=== PATIENT | male | born 1970 | race Caucasian/White ===

== ENCOUNTER 2020-04-26 10:01 | Emergency (ER) | payer OTHER, SELFPAY ==
[2020-04-26 10:37] VITALS: BP 137/89; PULSE 77; RESP 14; TEMP 36.8; O2SAT 100; BMI 27.1
--- NOTE | 2020-04-26 11:02 | HMH.EDUTC ---
[facility] Disposition Clinical Impression: Viral syndrome Disposition: Home, Self-Care Condition on Discharge: Good Instructions: DI for Viral Syndrome Additional Instructions: Drink plenty of fluids. Take tylenol or ibuprofen for pain or fever. Take the medications as directed. Follow up with your regular doctor. GO TO THE ER FOR ANY WORSENING SYMPTOMS FOLLOW THE DIRECTIONS ON THE COVID-19 HAND OUT THAT WE GAVE YOU REGARDING SELF-ISOLATION UNTIL YOU KNOW YOUR COVID-19 RESULTS Prescriptions: Cetirizine HCl 10 mg PO DAILY 30 Days #30 tab Transmission Status: Received by [id number] Fluticasone Propionate [Flonase 50mcg nasal spray 16gm] 1 spr NS BID 30 Days #1 bottle Transmission Status: Received by [id number] Referrals: Hector Diaz [Primary Care Provider] - Time of Disposition: 11:08 Medical Decision Making - Medical Records Medical records reviewed: No: I reviewed the patient's medical records. - Rafael Inquiry Pt receiving controlled substance: No Vital Signs: 04/26/20 10:37 04/26/20 11:17 Temperature 98.2 F 98.2 F Temperature Source Oral Oral Pulse Rate 77 Pulse Rate [Radial] 77 Respiratory Rate 14 14 Blood Pressure 137/89 Blood Pressure [Right Arm] 137/89 Blood Pressure Mean [Right Arm] 105 Blood Pressure Source Automatic Cuff Blood Pressure Source [Right Arm] Automatic Cuff Blood Pressure Position Sitting Blood Pressure Position [Right Arm] Sitting 02 Sat by Pulse Oximetry 100 Oxygen Delivery Method Room Air Room Air [facility] HPI - General Stated complaint: runny nose, covid exposure Time Seen by Provider: 04/26/20 10:50 Mode of Arrival: Ambulatory Source of Information: Patient Limitations: No Limitations Description of Symptoms (Recalled from Triage Doc. by RN): exposed last week. cough and sore throat. HEENT Symptoms (Recalled from RN notes): Yes Resp Symptoms (Recalled from RN notes): No Skin Symptoms (Recalled from RN notes): No MS Symptoms (Recalled from RN notes): No Functional Status (Recalled from RN notes): wnl - History of Present Illness Provider Complaint: He c/o having runny nose and sinus drainage for the past 3 days. He doesn't know of any definite COVID-19 exposure, but he wants to be sure he doesn't have it. He thinks that he has allergies. - Related Data Home Medications Medication Instructions Recorded Confirmed allopurinol 100 mg tablet 100 mg PO ONCE 10/21/17 citalopram 20 mg tablet 20 mg PO ONCE 10/21/17 lisinopril 20 mg tablet 20 mg PO ONCE 10/21/17 ranitidine HCl 150 mg tablet 150 mg PO QHS 10/21/17 Previous Rx's Medication Instructions Recorded Cetirizine HCl 10 mg PO DAILY 30 Days #30 tab 04/26/20 Fluticasone Propionate [Flonase 1 spr NS BID 30 Days #1 bottle 04/26/20 50mcg nasal spray 16gm] Allergies Allergy/AdvReac Type Severity Reaction Status Date / Time No Known Allergies Allergy Unverified 10/21/17 10:35 - Worker's Comp Is this a Worker's Comp case?: No [facility] History - Hepatitis A Screen Drug use history?: No High risk sexual behaviors?: No History of sexually transmitted infection?: No Currently employed?: No Childcare worker?: No Do you have indoor plumbing?: Yes Do you have electricity?: Yes Attestation statement:: This patient has been screened for Hepatitis A risk factors. I have reviewed the patient's past medical history: Yes Medical History: Reports:: Gastroesophageal Reflux Disease(GERD), Hypertension Other Medical History: Reports: Other Comment: Gout Other Surgeries: Yes: Other Comment: oral - Social History Smoking Status: Never smoker Alcohol Intake: never Alcohol Intake Frequency:: a few times a month Substance Use Type: denies use Occupational Status: employed Housing: house Household Members: family Family Hx:: Diabetes, Hypertension ROS Obtained: Yes All systems reviewed & no additional complaints - Constitutional Constitutional: Reports
[2020-04-26 11:17] VITALS: BP 137/89; PULSE 77; RESP 14; TEMP 36.8; O2SAT 100
== END 2020-04-26 11:19 | disposition home or self-care (01) ==
PROVIDERS: Emergency Provider Nurse Practitioner Family; PCP Family Medicine
DX: B34.9 Viral infection, unspecified (principal); Z20.828 Contact with and (suspected) exposure to other viral communicable diseases; I10 Essential (primary) hypertension; K21.9 Gastro-esophageal reflux disease without esophagitis; Z79.899 Other long term (current) drug therapy
CPT/HCPCS: 99201; U0003

== ENCOUNTER → 2021-03-14 18:37 | Outpatient (CLI) | payer OTHER, SELFPAY | PROVIDERS: PCP Family Medicine; Visit Provider Family Medicine | DX: G47.33 Obstructive sleep apnea (adult) (pediatric) (principal); R06.83 Snoring | CPT/HCPCS: 95806 ==